=== PATIENT | male | born 1995 | race African-American/Black ===

== ENCOUNTER 2016-10-20 09:43 | Emergency (ER) | payer SELFPAY ==
[~2016-10-20] VITALS: Ht 170.2 cm; Wt 80.5 kg
[~2016-10-20 09:43] MED LIST: CEPHALEXIN500 M1 PO; NORCO 325 MG-51 TAB PO
[2016-10-20 09:54] VITALS: BP 146/83; PULSE 69; TEMP 99.2
[2016-10-20] MEDS ORDERED: DOXYCYCLINE 10100 MG PO (10:11)
== END 2016-10-20 11:00 | disposition home or self-care (01) ==
LOC: COL.ER 09:43
DX: L03.012 Cellulitis of left finger (principal); Z23 Encounter for immunization

== ENCOUNTER 2017-10-28 16:47 | Emergency (ER) | payer BC ==
[~2017-10-28] VITALS: Ht 170.2 cm; Wt 84.1 kg
[~2017-10-28 16:47] MED LIST changes: +DOXYCYCLINE 10100 MG PO
[2017-10-28 16:53] VITALS: BP 130/76; TEMP 99
[2017-10-28] MEDS ORDERED: FLEXERIL 1010 MG/TAB PO (17:32)
[2017-10-28 18:00] VITALS: PULSE 75
== END 2017-10-28 18:00 | disposition home or self-care (01) ==
LOC: COL.ER 16:47
DX: S29.012A Strain of muscle and tendon of back wall of thorax, initial encounter (principal); F17.210 Nicotine dependence, cigarettes, uncomplicated; Z98.890 Other specified postprocedural states; X50.0XXA Overexertion from strenuous movement or load, initial encounter; Y92.89 Other specified places as the place of occurrence of the external cause
CPT/HCPCS: J2360

== ENCOUNTER 2017-11-10 17:50 | Emergency (ER) | payer BC ==
[~2017-11-10] VITALS: Ht 170.2 cm; Wt 83.2 kg
[~2017-11-10 17:50] MED LIST changes: +FLEXERIL 1010 MG/TAB PO
[2017-11-10 17:57] VITALS: BP 140/76; TEMP 98.6
[2017-11-10] MEDS ORDERED: NORCO 325 MG-51 TAB PO (18:40)
[2017-11-10] MEDS ORDERED: FLEXERIL 1010 MG/TAB PO (18:40)
[2017-11-10 19:00] VITALS: PULSE 86
== END 2017-11-10 19:01 | disposition home or self-care (01) ==
LOC: COL.ER 17:50
DX: S29.012A Strain of muscle and tendon of back wall of thorax, initial encounter (principal); S39.012A Strain of muscle, fascia and tendon of lower back, initial encounter; M54.9 Dorsalgia, unspecified; F17.210 Nicotine dependence, cigarettes, uncomplicated; X50.0XXA Overexertion from strenuous movement or load, initial encounter; Y92.59 Other trade areas as the place of occurrence of the external cause
CPT/HCPCS: J1885; J2360

== ENCOUNTER 2018-03-26 19:21 | Emergency (ER) | payer SELFPAY ==
[~2018-03-26] VITALS: Ht 170.2 cm; Wt 85.0 kg
[2018-03-26 19:24] VITALS: BP 144/92; TEMP 98.3
[2018-03-26] MEDS ORDERED: TYLENOL 8 HR PO (20:12)
[2018-03-26 20:29] LABS: BASO % 0.9 % (0.0-2.0); EOS % 0.2 % (0-4.0); GRAN # 2.7 (1.4-6.5); GRAN % 59.2 % (42.2-75.2); HEMATOCRIT 49.7 % (42.0-52.0); HEMOGLOBIN 16.4 g/dl (13.5-18.0); LYMPH # 1.3 (1.2-3.4); LYMPH % 28.4 % (20.0-51.0); MEAN CELL VOLUME 97 fl (80.0-100.0); MEAN CORPUSCULAR HEMOGLOBIN 32 pg (27.0-31.0); MEAN CORPUSCULAR HGB CONC 33 g/dl (33.0-37.0); MEAN PLATELET VOLUME 9.8 fl (7.4-10.4); MONO # 0.5 (0.1-0.6); MONO % 11.1 % (1.7-9.3); PLATELET COUNT 357 K/mm3 (130-400); RED BLOOD COUNT 5.11 M/mm3 (4.20-5.60); REDCELL DISTRIBUTION WIDTH-CV 12.4 % (11.5-14.5)
[2018-03-26 20:37] LABS: ALANINE AMINOTRANSFERASE 52 U/L (21-72); ALBUMIN 4.8 gm/dL (3.5-5.0); ALKALINE PHOSPHATASE 77 U/L (50-136); ANION GAP 9 mmol/L (7-16); AST,SGOT 45 U/L (15-37); BILIRUBIN,TOTAL 1.4 mg/dL (0.0-1.0); BLOOD UREA NITROGEN 18 mg/dL (9-20); CALCIUM 9.6 mg/dL (8.4-10.2); CARBON DIOXIDE 28 mmol/L (22-30); CHLORIDE 98 mmol/L (98-107); CREATININE, serum 1.16 mg/dL (0.66-1.25); GLUCOSE 81 mg/dL (74-106); POTASSIUM 4.7 mmol/L (3.4-5.0); SODIUM 135 mmol/L (137-145); TOTAL PROTEIN 8.2 gm/dL (6.4-8.2)
[2018-03-26 20:38] LABS: C-REACTIVE PROTEIN < 0.5 mg/dL (0.0-0.9)
[2018-03-26 21:20] VITALS: PULSE 70
== END 2018-03-26 21:24 | disposition home or self-care (01) ==
LOC: COL.ER 19:21
PROVIDERS: Physician Assistant
DX: R51 Headache (principal); F17.210 Nicotine dependence, cigarettes, uncomplicated; Z98.890 Other specified postprocedural states
CPT/HCPCS: J1200; J1885; J2405; J2765; J7030

== ENCOUNTER 2018-06-11 12:49 | Outpatient (RCR) | payer OTHER ==
[~2018-06-11 12:49] MED LIST changes: +TYLENOL 8 HR PO
== END 2018-06-15 08:25 | disposition home or self-care (01) ==
LOC: WSOH 12:49
DX: Z02.89 Encounter for other administrative examinations (principal)